=== PATIENT | female | born 2000 | race Two or more races ===

== ENCOUNTER 2023-12-21 08:35 | Emergency (ER) | payer MEDICAID ==
[~2023-12-21] VITALS: Ht 157.5 cm; Wt 55.9 kg
[2023-12-21 09:18] VITALS: PULSE 68; RESP 16; O2SAT 96
[2023-12-21 11:40] VITALS: BP 101/63; PULSE 84; RESP 18; TEMP 98; O2SAT 96
[2023-12-21 11:56] LABS: Urine Bacteria FEW /hpf (None Seen); Urine Blood 1+ /uL (Negative); Urine Clarity Clear (Clear); Urine Color Colorless (Yellow); Urine Protein, UAD Negative (Negative); Urine Specific Gravity 1.005 (1.001-1.035); Urine Urobilinogen Normal (Negative); Urine WBC 1 /hpf (0 - 5); Urine pH 5.5 (5.0-9.0)
== END 2023-12-21 11:42 | disposition home or self-care (01) ==
LOC: ER 08:35
DX: O20.0 Threatened abortion (principal); Z3A.01 Less than 8 weeks gestation of pregnancy
CPT/HCPCS: 36415; 76801; 76817; 81001; 84702